=== PATIENT | female | born 1980 | race African-American/Black ===

== ENCOUNTER 2018-04-09 03:01 | Inpatient (IN) | payer OTHER ==
[2018-04-09] VITALS (28 sets, daily range): BP systolic 96–143; BP diastolic 47–74
[~2018-04-09] VITALS: Ht 165.1 cm; Wt 122.7 kg
[~2018-04-09 03:01] MED LIST: ATARAX,VISTARIL25 MG PO; MOTRIN800 MG PO; PREDNISONE20 MG PO
[2018-04-09] MEDS ORDERED: PRENATAL TABLE1 EAC3 PO (04:08)
[2018-04-09 04:31] LABS: BASOPHIL (%) 0.3 % (0-1); EOSINOPHIL (%) 0.8 % (0-5); EOSINOPHIL COUNT 0.1 K/uL (0-0.3); HEMATOCRIT 28.9 % (36.0-46.0); HEMOGLOBIN 9.7 G/DL (11.9-15.5); IMMATURE GRANULOCYTE (%) 0.8 % (0.0-0.7); LYMPHOCYTE (%) 17.9 % (15-42); LYMPHOCYTE COUNT 2.1 K/uL (1.0-2.8); MCH 29.3 PG (29.0-34.0); MCHC 33.6 G/DL (30.0-36.0); MCV 87.3 FL (83-99); MONOCYTE (%) 6.1 % (3-12); MONOCYTE COUNT 0.7 K/uL (0-0.8); NEUTROPHIL (%) 74.1 % (45-76); NEUTROPHIL COUNT 8.6 K/uL (1.8-6.4); PLATELET COUNT 184 K/uL (156-360); RBC DIS.WIDTH-CV 13.7 % (11.8-14.6); RBC DIS.WIDTH-SD 43.5 % (39-53); RED BLOOD COUNT 3.31 M/uL (3.80-5.20); WHITE BLOOD COUNT 11.6 K/uL (4.1-10.2)
[2018-04-09 05:18] LABS: AMPHETAMINE NEGATIVE (500 ng/mL); BARBITURATES NEGATIVE (200 ng/mL); BENZODIAZEPINES NEGATIVE (150 ng/mL); BUPRENORPHINE NEGATIVE (10 ng/mL); COCAINE NEGATIVE (150 ng/mL); METHADONE NEGATIVE (200 ng/mL); METHAMPHETAMINE NEGATIVE (500 ng/mL); OPIATES (MORPHINE) NEGATIVE (100 ng/mL); OXYCODONE NEGATIVE (100 ng/mL); PHENCYCLIDINE NEGATIVE (25 ng/mL); PROPOXYPHENE NEGATIVE (300 ng/mL); THC CANNABINOIDS NEGATIVE (50 ng/mL); TRICYCLIC ANTIDEPRESSANTS NEGATIVE (300 ng/mL)
[2018-04-10] VITALS (9 sets, daily range): BP systolic 103–127; BP diastolic 50–74
[2018-04-11 03:00] VITALS: BP 108/66
[2018-04-11 07:07] LABS: BASOPHIL (%) 0.4 % (0-1); BASOPHIL COUNT 0.1 K/uL (0-0.1); EOSINOPHIL (%) 0.6 % (0-5); EOSINOPHIL COUNT 0.1 K/uL (0-0.3); HEMATOCRIT 21.2 % (36.0-46.0); IMMATURE GRANULOCYTE (%) 0.8 % (0.0-0.7); LYMPHOCYTE (%) 17.6 % (15-42); LYMPHOCYTE COUNT 2.5 K/uL (1.0-2.8); MCH 30.1 PG (29.0-34.0); MCHC 33.5 G/DL (30.0-36.0); MCV 89.8 FL (83-99); NEUTROPHIL (%) 73.6 % (45-76); NEUTROPHIL COUNT 10.4 K/uL (1.8-6.4); PLATELET COUNT 145 K/uL (156-360); RBC DIS.WIDTH-CV 14.3 % (11.8-14.6); RBC DIS.WIDTH-SD 46.2 % (39-53); WHITE BLOOD COUNT 14.1 K/uL (4.1-10.2)
[2018-04-11 07:23] LABS: HEMOGLOBIN 7.1 G/DL (11.9-15.5); RED BLOOD COUNT 2.36 M/uL (3.80-5.20)
[2018-04-11 15:06] VITALS: BP 126/58
[2018-04-12 07:15] VITALS: BP 102/53
[2018-04-12] MEDS ORDERED: FERROUS SULFAT325 MG PO (10:01)
[2018-04-12] MEDS ORDERED: ENDOCET 5-3251 EACH PO (10:01)
== END 2018-04-12 13:42 | disposition home or self-care (01) | DRG 765 ==
LOC: LDRP-OP → 2WEST 03:02 → LDRP-OP 12:10 → 2WEST 04-10 01:32 → LDRP-OP 05-04 09:27
PROVIDERS: Advanced Practice Midwife; Obstetrics & Gynecology
DX: O62.0 Primary inadequate contractions (principal); O42.92 Full-term premature rupture of membranes, unspecified as to length of time between rupture and onset of labor; O48.0 Post-term pregnancy; O99.02 Anemia complicating childbirth; D62 Acute posthemorrhagic anemia; D50.9 Iron deficiency anemia, unspecified; O34.13 Maternal care for benign tumor of corpus uteri, third trimester; D25.1 Intramural leiomyoma of uterus; O99.214 Obesity complicating childbirth; E66.01 Morbid (severe) obesity due to excess calories; Z68.41 Body mass index [BMI] 40.0-44.9, adult; Z3A.40 40 weeks gestation of pregnancy; Z37.0 Single live birth
CPT/HCPCS: 85025; 86850; 86900; 86901; C1755; G0378; J0456; J0595; J0690; J1170; J1885; J2175; J2274; J2400; J2405; J3010; J7120; S0020

== ENCOUNTER 2018-04-15 16:10 | Inpatient (IN) | payer OTHER ==
[2018-04-15] VITALS (7 sets, daily range): BP systolic 123–170; BP diastolic 65–74
[~2018-04-15] VITALS: Ht 167.6 cm; Wt 123.7 kg
[~2018-04-15 16:10] MED LIST changes: +ENDOCET 5-3251 EACH PO; +FERROUS SULFAT325 MG PO; +PRENATAL TABLE1 EAC3 PO
[2018-04-15 17:35] LABS: HEMATOCRIT 24.2 % (36.0-46.0); MCH 29.3 PG (29.0-34.0); MCHC 33.1 G/DL (30.0-36.0); MCV 88.6 FL (83-99); RBC DIS.WIDTH-CV 14.1 % (11.8-14.6); RBC DIS.WIDTH-SD 45.4 % (39-53); RED BLOOD COUNT 2.73 M/uL (3.80-5.20); WHITE BLOOD COUNT 12.1 K/uL (4.1-10.2)
[2018-04-15 17:42] LABS: ALBUMIN 3.2 g/dL (3.2-4.8)
[2018-04-15 17:43] LABS: CHLORIDE 110 mEq/L (99-109); POTASSIUM 3.7 mEq/L (3.7-5.4); SODIUM 143 mEq/L (136-147)
[2018-04-15 17:45] LABS: GLUCOSE 87 mg/dL (70-99); TOTAL PROTEIN 5.9 g/dL (6.4-8.3)
[2018-04-15 17:47] LABS: TOTAL BILIRUBIN 0.4 mg/dL (0.0-1.0)
[2018-04-15 17:48] LABS: ALKALINE PHOSPHATASE 116 IU/L (3-129)
[2018-04-15 17:49] LABS: CREATININE 0.8 mg/dL (0.6-1.3); GFR ESTIMATE (CALCULATED) > 59 mL/min/
[2018-04-15 17:50] LABS: AST (GOT) 14 IU/L (2-34); UREA NITROGEN (BUN) 15 mg/dL (9-23)
[2018-04-15 17:51] LABS: ALT (GPT) 21 IU/L (3-49)
[2018-04-15 17:59] LABS: PTT 23.7 SEC (25-37)
[2018-04-15 18:15] LABS: PLAT.SUFFICIENCY ADEQUATE
[2018-04-15 18:20] LABS: PLATELET COUNT 217 K/uL (156-360)
[2018-04-15 19:51] LABS: APPEARANCE CLEAR ((CLEAR)); BILIRUBIN NEGATIVE; BLOOD MODERATE; COLOR STRAW ((YELLOW)); GLUCOSE (STRIP) NEGATIVE; KETONES 5; LEUKOCYTES NEGATIVE; NITRITE NEGATIVE; PROTEIN (STRIP) NEGATIVE; SPECIFIC GRAVITY 1.013 (1.000-1.030); UROBILINOGEN 0.2 MG/DL (0.2-1.0)
[2018-04-15 20:00] LABS: BACTERIA RARE /HPF; EPITHELIAL CELLS RARE /HPF; MUCUS 1+ /LPF; RED BLOOD CELLS 0-5 /HPF (0-5); UCUL ADDED? NO; WHITE BLOOD CELLS 0-5 /HPF (0-5)
[2018-04-16] VITALS (19 sets, daily range): BP systolic 116–137; BP diastolic 57–103
[2018-04-16 04:33] LABS: AMPHETAMINE NEGATIVE (500 ng/mL); BARBITURATES NEGATIVE (200 ng/mL); BENZODIAZEPINES NEGATIVE (150 ng/mL); BUPRENORPHINE NEGATIVE (10 ng/mL); COCAINE NEGATIVE (150 ng/mL); METHADONE NEGATIVE (200 ng/mL); METHAMPHETAMINE NEGATIVE (500 ng/mL); OPIATES (MORPHINE) NEGATIVE (100 ng/mL); OXYCODONE NEGATIVE (100 ng/mL); PHENCYCLIDINE NEGATIVE (25 ng/mL); PROPOXYPHENE NEGATIVE (300 ng/mL); THC CANNABINOIDS NEGATIVE (50 ng/mL); TRICYCLIC ANTIDEPRESSANTS NEGATIVE (300 ng/mL)
[2018-04-17 03:15] VITALS: BP 121/58
[2018-04-17 07:18] VITALS: BP 128/64
== END 2018-04-17 08:30 | disposition home or self-care (01) | DRG 776 ==
LOC: LDRP-OP 16:10 → RME 16:10 → EME 16:10 → RME 20:38 → EDSTATUS 20:55 → 2WEST 20:57
PROVIDERS: Obstetrics & Gynecology; Physician Assistant
DX: O14.95 Unspecified pre-eclampsia, complicating the puerperium (principal); O12.05 Gestational edema, complicating the puerperium; Z98.891 History of uterine scar from previous surgery
CPT/HCPCS: 71046; 80053; 81003; 83880; 85027; 85610; 85730; 93005; 93970; 99281; 99285; G0378; J3475; J7120